=== PATIENT | female | born 1985 | race Caucasian/White ===

== ENCOUNTER 2016-09-30 11:52 | Emergency (ER) | payer OTHER ==
[~2016-09-30] VITALS: Ht 160 cm; Wt 81.6 kg
[~2016-09-30 11:52] MED LIST: MTR600X PO; PRENTAB26 PO
[2016-09-30 11:57] VITALS: TEMP 37; Ht 160 cm; Wt 81.6 kg
[2016-09-30] MEDS ORDERED: ALUMINUM/MAGNESIUM SUSP 30 ML UDC PO STA (12:28)
[2016-09-30] MEDS ORDERED: FAMOTIDINE 20MG/102 ML D5W IV STA (12:28)
[2016-09-30] MEDS ORDERED: ONDANSETRON INJ 2 MG/ML 2 ML VIAL IV STA (12:28)
[2016-09-30] MEDS ORDERED: SODIUM CHLORIDE 0.9% 1000ML 1,000 ML IV STA ×2 (12:28)
[2016-09-30] MEDS ORDERED: LIDOCAINE HCL 2% VISC SOLN 20 ML UDC PO STA (12:28)
[2016-09-30 12:52] VITALS: O2SAT 94
[2016-09-30 12:56] LABS: BASO % 0.6 %; BASO ABS # 0.05 K/uL (0-0.2); COMPLETE YES; EOS % 1.1 %; IG% 0.1 %; LYMPH % 29.5 %; LYMPH ABS # 2.51 K/uL (1.2-3.4); MEAN CELL VOLUME 85.3 fL (80-100); MEAN CORPUSCULAR HEMOGLOBIN 30.6 pg (25-34); MEAN CORPUSCULAR HGB CONC 35.9 g/dl (32-36); MEAN PLATELET VOLUME 12.2 fL (7.4-10.4); MONO % 6.3 %; NEUT % 62.4 %; PLATELET COUNT 274 K/uL (130-400); RED BLOOD COUNT 4.57 M/uL (4.2-5.4); WHITE BLOOD COUNT 8.51 K/uL (4.8-10.8)
[2016-09-30 13:05] LABS: AST/SGOT 14 U/L (15-37); BLOOD UREA NITROGEN 10 mg/dl (7-18); BUN/CREATININE RATIO 14.4 (10-20); CARBON DIOXIDE 29 mmol/L (21-32); CHLORIDE 108 mmol/L (98-107); GLUCOSE 108 mg/dl (70-99); MAGNESIUM 2.2 mg/dl (1.8-2.4); POTASSIUM 3.6 mmol/L (3.5-5.1); SODIUM 142 mmol/L (136-145)
[2016-09-30 13:10] LABS: ALKALINE PHOSPHATASE 70 U/L (45-117); ALT/SGPT 23 U/L (12-78)
--- NOTE | 2016-09-30 13:17 | DIAGNOSTIC IMAGING REPORT ---
CHEST ONE VIEW PORTABLE CLINICAL HISTORY: CHEST PAIN dyspnea COMPARISON STUDY: No previous studies for comparison. FINDINGS: The bones soft tissues and hemidiaphragms are normal. The cardiomediastinal silhouette is normal. The lungs are clear. The pulmonary vasculature is normal. IMPRESSION: Negative chest. Electronically signed by: Alberto Dunlap M.D. 09/30/2016 1:15 PM Dictated Date/Time: 09/30/2016 1:15 PM
[2016-09-30 13:20] LABS: PREG INTERNAL NEGATIVE QC NEG CLEAR BACKGROUND; PREG INTERNAL POSITIVE QC POS CONTROL LINE
[2016-09-30] MEDS ORDERED: PRLSR20 PO (13:44)
--- NOTE | 2016-09-30 14:14 | DIAGNOSTIC IMAGING REPORT ---
ABDOMINAL ULTRASOUND, RIGHT UPPER QUADRANT HISTORY: Epigastric pain. Recent cholecystectomy.. COMPARISON: None. FINDINGS: Pancreas: The pancreatic tail is obscured by overlying bowel gas. The remaining portions of the pancreas are within normal limits. Liver: Unremarkable. Gallbladder: The gallbladder is surgically absent. CBD: 4 mm Right kidney: No hydronephrosis. IMPRESSION: No significant abnormality identified within the right upper quadrant. Prior cholecystectomy. Electronically signed by: Shay Woodward M.D. 09/30/2016 2:12 PM Dictated Date/Time: 09/30/2016 2:02 PM
[2016-09-30] MEDS ORDERED: DICYCLOMINE HCL 10 MG/ML 2 ML AMP IM ONE (14:45)
[2016-09-30] MEDS ORDERED: OPTIRAY 320 IV PRN (14:45)
--- NOTE | 2016-09-30 15:20 | DIAGNOSTIC IMAGING REPORT ---
CT SCAN OF THE ABDOMEN AND PELVIS WITH IV CONTRAST CLINICAL HISTORY: Right-sided abdominal pain. COMPARISON STUDY: Abdominal ultrasound dated 09/30/2016. Pelvic ultrasound dated 09/30/2015. TECHNIQUE: Following the IV administration of 93 cc of Optiray 320, CT scan of the abdomen and pelvis is performed from the lung bases to the proximal femora. Images are reviewed in the axial, sagittal, and coronal planes. IV contrast was administered without complication. Automated dose control exposure was utilized. CT DOSE: 452.81 mGy.cm FINDINGS: Lung bases: The heart is normal in size and without pericardial effusion. The lung bases are clear. Liver: The contrast-enhanced liver is normal in size, contour, and attenuation. There is no intrahepatic biliary ductal dilatation. The hepatic veins and portal veins are patent. Gallbladder: Surgically absent noting clips in the gallbladder fossa. Spleen: Normal in size and attenuation. Pancreas: Unremarkable. Adrenal glands: Unremarkable. Kidneys: The contrast enhanced kidneys are normal in size and without hydronephrosis. Excreted contrast is present within the renal collecting system. A nonobstructing calculus is suspected in the lower pole the right kidney on image #215. The kidneys enhance symmetrically. Abdominal vasculature: The abdominal aorta is normal in course and caliber. Bowel: The small bowel and colon are normal in course and caliber. The appendix is well-visualized and normal. Peritoneum: There is no intraperitoneal free air or abdominal ascites. There is a fat-containing umbilical hernia. Lymphadenopathy: None. Pelvic viscera: Excreted contrast is present within the bladder. The bladder is otherwise normal as imaged. The uterus and adnexa are normal as visualized. Bilateral ovarian follicles are present. Skeletal structures: No lytic or blastic lesions are seen. Mild sclerotic change is noted at the sacroiliac joints and pubic symphysis. IMPRESSION: 1. There are no acute infectious or inflammatory findings in the abdomen or pelvis. 2. Question a small nonobstructing calculus in the lower pole of the right kidney. This is suboptimally assessed due to the presence of excreted IV contrast within the renal collecting system. Electronically signed by: Titi Marquez M.D. 09/30/2016 3:18 PM Dictated Date/Time: 09/30/2016 3:14 PM
[2016-09-30] MEDS ORDERED: PANT40TA PO (16:12)
--- NOTE | 2016-09-30 16:14 | EMERGENCY ROOM VISIT NOTE ---
History First contact with patient: 12:11 Chief Complaint: ABDOMINAL PAIN Stated Complaint: PAIN IN GALLBLADDER AREA Nursing Triage Summary: Pt states, "I had my gall bladder out in Jul. I feel like I am having a gall bladder attack. I have been getting light pain all week and today it got worse. I have diarrhea and I have threw up once at work." History of Present Illness The patient is a 31 year old female who presents to the Emergency Room with complaints of nausea, vomiting, diarrhea and epigastric discomfort for the past day. Patient denies chest pain, dyspnea, fever, chills, cough, chest, back pain , urinary symptoms. She describes the pain as aching, ranging in severity 5 out of 10 system are to her gallbladder pain. No blood or black in the stool or vomit. She has had recent antibiotics. She is on well water but does not drink. Review of Systems See HPI for pertinent positives & negatives. A total of 10 systems reviewed and were otherwise negative. Past Medical/Surgical History Social History Problems: (1) IUD (intrauterine device) in place GERD, kidney stones, cholecystectomy Family History Patient reports no known family medical history. Social History Smoking Status: Never Smoker Drug Use: none Marital Status: in relationship Occupation Status: employed Current/Historical Medications Scheduled Ibuprofen (Ibuprofen), 1 TAB PO Q6H Multivit/Min/Iron/Fol Ac/Pren ( Vitamin), 1 TAB PO DAILY Omeprazole (Prilosec), 20 MG PO DAILY Pantoprazole (Protonix), 40 MG PO DAILY Allergies Coded Allergies: Cefazolin (Unverified Allergy, Mild, 09/30/16) Sulfa Antibiotics (Verified Allergy, Mild, THINKS SHE GOT A RASH, DIARRHEA , 09/30/16) Cefixime (Unverified Adverse Reaction, Intermediate, DIZZY, WEAK, 09/30/16) FROM [facility] Physical Exam Vital Signs Date Time Temp Pulse Resp B/P Pulse Ox O2 Delivery O2 Flow Rate FiO2 09/30/16 14:30 64 17 122/80 100 Room Air 09/30/16 13:09 92 09/30/16 12:52 94 Room Air 09/30/16 12:52 94 Room Air 09/30/16 11:57 37.0 91 18 140/84 95 Room Air Physical Exam VITALS: Vitals are noted on the nurse's note and reviewed by myself. Vital signs stable. GENERAL: Pleasant female, in no acute distress, nondiaphoretic, well-developed well-nourished. SKIN: The skin was without rashes, erythema, edema, or bruising. There is no tenting of the skin. Capillary reflex less than 2 seconds. HEAD: Normocephalic atraumatic. EARS: External auditory canals clear, tympanic membranes pearly mckenzie without erythema or effusion bilaterally. EYES: Pupils equal round and reactive to light and accommodation. Conjunctivae without injection, sclerae without icterus. Extraocular movements intact. NOSE: Patent, turbinates without inflammation or discharge. No sinus tenderness. MOUTH: Mucous membranes mildly dry. Pharynx without erythema or exudate. Uvula midline. Airway patent. Tongue does not deviate. NECK: Supple without nuchal rigidity. No lymphadenopathy. No thyromegaly. Cervical spine is nontender. No JVD. HEART: Regular rate and rhythm without murmurs gallops or rubs. LUNGS: Clear to auscultation bilaterally without wheezes, rales or rhonchi. No dullness to percussion. No retractions or accessory muscle use. ABDOMEN: Positive bowel sounds x 4. Normal tympanic percussion. Soft, minimal tender to palpation epigastric region, no CVA tenderness, without masses or organomegaly. Simon sign negative. No guarding or rebound tenderness. MUSCULOSKELETAL: No muscle atrophy, erythema, or edema noted. NEURO: Patient was alert and oriented to person place and time. Normal sensation to light and sharp touch. No focal neurological deficits. Medical Decision & Procedures Laboratory Results 09/30/16 12:14 Red Blood Count 4.57, Mean Corpuscular Volume 85.3, Mean Corpuscular Hemoglobin 30.6, Mean Corpuscular Hemoglobin Concent 35.9, Mean Platelet Volume 12.2, Neutrophils (%) (Auto) 62.4, Lymphocytes (%) (Auto) 29.5, Monocytes (%) (Auto) 6.3, Eosinophils (%) (Auto) 1.1, Basophils (%) (Auto) 0.6, Neutrophils # (Auto) 5.31, Lymphocytes # (Auto) 2.51, Monocytes # (Auto) 0.54, Eosinophils # (Auto) 0.09, Basophils # (Auto) 0.05 09/30/16 12:14 Test 09/30/16 12:09 09/30/16 12:14 White Blood Count 8.51 K/uL (4.8-10.8) Red Blood Count 4.57 M/uL (4.2-5.4) Hemoglobin 14.0 g/dL (12.0-16.0) Hematocrit 39.0 % (37-47) Mean Corpuscular Volume 85.3 fL (80-100) Mean Corpuscular Hemoglobin 30.6 pg (25-34) Mean Corpuscular Hemoglobin Concent 35.9 g/dl (32-36) Platelet Count 274 K/uL (130-400) Mean Platelet Volume 12.2 fL (7.4-10.4) Neutrophils (%) (Auto) 62.4 % Lymphocytes (%) (Auto) 29.5 % Monocytes (%) (Auto) 6.3 % Eosinophils (%) (Auto) 1.1 % Basophils (%) (Auto) 0.6 % Neutrophils # (Auto) 5.31 K/uL (1.4-6.5) Lymphocytes # (Auto) 2.51 K/uL (1.2-3.4) Monocytes # (Auto) 0.54 K/uL (0.11-0.59) Eosinophils # (Auto) 0.09 K/uL (0-0.5) Basophils # (Auto) 0.05 K/uL (0-0.2) RDW Standard Deviation 40.7 fL (36.4-46.3) RDW Coefficient of Variation 13.1 % (11.5-14.5) Immature Granulocyte % (Auto) 0.1 % Immature Granulocyte # (Auto) 0.01 K/uL (0.00-0.02) Anion Gap 5.0 mmol/L (3-11) Est Creatinine Clear Calc Drug Dose 115.6 ml/min Estimated GFR () 131.9 Estimated GFR (Non- 113.8 BUN/Creatinine Ratio 14.4 (10-20) Calcium Level 9.0 mg/dl (8.5-10.1) Magnesium Level 2.2 mg/dl (1.8-2.4) Total Bilirubin 0.3 mg/dl (0.2-1) Direct Bilirubin < 0.1 mg/dl (0-0.2) Aspartate Amino Transf (AST/SGOT) 14 U/L (15-37) Alanine Aminotransferase (ALT/SGPT) 23 U/L (12-78) Alkaline Phosphatase 70 U/L (45-117) Troponin I < 0.015 ng/ml (0-0.045) Total Protein 8.4 gm/dl (6.4-8.2) Albumin 4.2 gm/dl (3.4-5.0) Lipase 135 U/L (73-393) Human Chorionic Gonadotropin, Qual NEG (NEG) Date/Time Source Procedure Growth Status 09/30/16 12:09 Stool C.difficile Toxin B Gene (PCR) - Final No C. difficile toxin B gene detected Complete Medications Administered Medications (Trade) Dose Ordered Sig/Maite Route Start Time Stop Time Status Last Admin Dose Admin Ondansetron HCl 4 mg 4 mg NOW STAT IV 09/30/16 12:28 09/30/16 12:31 DC 09/30/16 12:47 4 MG Sodium Chloride 1,000 ml @ 999 mls/hr Q1H1M STAT IV 09/30/16 12:28 09/30/16 13:28 DC 09/30/16 12:46 999 MLS/HR Sodium Chloride (Nss 1000ml) 1,000 ml @ 125 mls/hr Q8H STAT IV 09/30/16 12:28 09/30/16 20:27 09/30/16 12:28 125 MLS/HR Famotidine (Pepcid 20mg/100 ml) 20 mg ONE STAT IV 09/30/16 12:28 09/30/16 12:32 DC 09/30/16 12:46 20 MG Lidocaine HCl (Viscous Lidocaine 2% Soln) 10 ml NOW STAT PO 09/30/16 12:28 09/30/16 12:32 DC 09/30/16 12:47 10 ML Al Hydroxide/Mg Hydroxide (Maalox Susp) 30 ml NOW STAT PO 09/30/16 12:28 09/30/16 12:32 DC 09/30/16 12:47 30 ML Dicyclomine HCl (Bentyl Inj) 20 mg NOW ONCE IM 09/30/16 14:45 09/30/16 14:46 DC 09/30/16 15:16 20 MG ED Course Prior records/ancillary studies reviewed. Triage Nursing notes reviewed. Additional history obtained from the family. The patient's history was concerning for nausea, vomiting, diarrhea, and abdominal pain. Differential diagnosis: Etiologies such as gastroenteritis, food borne illness, infections, appendicitis , diverticulitis, inflammatory bowel disease, obstruction, GI bleed, biliary pathology, as well as others were entertained. Physical examination findings: As above. Abdominal examination revealed minimal epigastric tenderness. Vital signs reviewed and revealed stable. ER treatment provided: IV hydration 1 L NSS. GI cocktail On reassessment the patient felt better. Patient was tolerating p.o. intake. Diagnostics interpretation by me: EKG: Normal sinus, normal intervals, no acute ST-T wave changes. Impression normal sinus rhythm interpreted by myself The labs revealed negative C. difficile No worrisome leukocytosis or anemia Imaging studies: ABDOMINAL ULTRASOUND, RIGHT UPPER QUADRANT HISTORY: Epigastric pain. Recent cholecystectomy.. COMPARISON: None. FINDINGS: Pancreas: The pancreatic tail is obscured by overlying bowel gas. The remaining portions of the pancreas are within normal limits. Liver: Unremarkable. Gallbladder: The gallbladder is surgically absent. CBD: 4 mm Right kidney: No hydronephrosis. IMPRESSION: No significant abnormality identified within the right upper quadrant. Prior cholecystectomy. Electronically signed by: Shay Woodward M.D. CT of the abdomen and pelvis was reviewed and read by radiology This appears to be consistent with right upper quadrant epigastric discomfort most likely from gastritis and vomiting and diarrhea most likely viral in etiology. Patient did not have an acute abdomen on exam. She is well- appearing. She is tolerating fluids. She is advised to do clear liquid diet today and the progress as tolerated to bland diet tomorrow. She is advised follow-up family care in a few days or here in the ER sooner for abdominal pain , fevers, vomiting, worsening signs or symptoms or as needed. By the evaluation outlined above emergent etiologies such as appendicitis, diverticulitis, obstruction, cardiac sources, mesenteric ischemia, aortic pathology, inflammatory bowel disease, renal colic, PUD, biliary pathology, UTI, as well as others were deemed relatively unlikely. The pt informed about the findings as listed above. All questions were answered and pleased with the treatment. Return instructions were outlined and the patient was discharged in stable condition. Outpatient prescription management: Zofran Referral: The patient was referred to their primary care physician for follow-up in 2 to 3 days for a recheck of the current condition. Case reviewed with my attending Medical Decision As above Impression Primary Impression: Nausea vomiting and diarrhea Additional Impression: Abdominal pain Departure Information Dispostion Home / Self-Care Condition GOOD Prescriptions Pantoprazole (Protonix) 40 Mg Tab 40 MG PO DAILY for 14 Days, #14 TAB Prov: Suzie Edwards .ILENE 09/30/16 Referrals No Doctor, Assigned (PCP) Patient Instructions My [facility] Additional Instructions Protonix 40 m tablet daily for next 2 weeks. Take this on an empty stomach. Try Maalox or Zantac for breakthrough symptoms for reflux. Avoid large meals. Avoid acidic foods. Rest and drink plenty of fluids as tolerated. Continue current medications. Avoid strenuous activities and anything that worsens your pain. Resume normal activities once your symptoms resolve. Return to the ER immediately for worsening or persistent chest pain, abdominal pain, black or blood in your stools, vomiting, fevers, chest pains, difficulty breathing, worsening of your condition, or as needed. Follow up with your primary physician in 2-3 days for a recheck of your current condition. Problem Qualifiers
[2016-09-30 16:27] VITALS: BP 130/71; PULSE 72; O2SAT 97
[2016-09-30] MEDS ORDERED: PERCOCET HOME PACK PO ONE (16:30)
[2016-10-04 17:35] LABS: O&P GIARDIA AG NOT DETECTED (NOT DETECTED)
== END 2016-09-30 17:00 | disposition home or self-care (01) ==
LOC: C.EDB 11:53 → C.EDC 17:00
DX: R11.2 Nausea with vomiting, unspecified (principal); R19.7 Diarrhea, unspecified; R10.13 Epigastric pain; K21.9 Gastro-esophageal reflux disease without esophagitis; Z90.49 Acquired absence of other specified parts of digestive tract; Z87.442 Personal history of urinary calculi; Z79.899 Other long term (current) drug therapy

== ENCOUNTER 2017-02-15 11:43 | Emergency (ER) | payer OTHER ==
[~2017-02-15] VITALS: Ht 160 cm; Wt 82.1 kg
[~2017-02-15 11:43] MED LIST changes: +PRLSR20 PO
[2017-02-15 11:55] VITALS: Ht 160 cm; Wt 82.1 kg
--- NOTE | 2017-02-15 12:58 | EMERGENCY ROOM VISIT NOTE ---
History Report prepared by Herman: Aye Franklin Under the Supervision of: Ivan EscobarO. First contact with patient: 12:21 Chief Complaint: ABDOMINAL PAIN Stated Complaint: UPPER PAIN IN STOMACH History of Present Illness The patient is a 31 year old female who presents to the Emergency Room with complaints of intermittent, worsening right upper quadrant abdominal pain that began approximately five weeks ago, but became constant more recently. She currently rates her discomfort as a 6/10 in severity. The patient states that in July she had a cholecystectomy due to sludge build up in her gallbladder. She denies ever having any gallstones. The patient additionally reports that prior to her cholecystectomy she had miscarriage. She states that she is currently 8 weeks . The patient states that three weeks into her she began experiencing right upper quadrant pain that feels similar to the pain she felt with her gallbladder. She states that since her cholecystectomy she has been experiencing intermittent diarrhea, but additionally reports being in contact with a patient with c-diff. The patient states that she has been feeling increasingly bloated and has experienced nausea and vomiting. She reports right flank pain. The patient states that she has tried a low fat diet, but states that her symptoms have persisted. She states that her pain is slightly alleviated with a large bowel movement and lying down. The patient reports a history of acid reflux, but denies any history of ulcers, IBS, Crohn's disease, or ulcerative colitis. She denies any fevers, chills, urinary symptoms, vaginal bleeding, vaginal discharge, melena, or hematochezia. The patient's records were reviewed from [facility]. Source of History: patient Onset: five weeks ago Position: abdomen (RUQ) Symptom Intensity: 6/10 Timing: constant, worsening Modifying Factors (Relieving): other (large bowel movements, lying down) Associated Symptoms: + nausea, + vomiting, + diarrhea, No fevers, No chills , No melena, No hematochezia, No urinary symptoms Note: Associated Symptoms: abdominal bloating Review of Systems See HPI for pertinent positives & negatives. A total of 10 systems reviewed and were otherwise negative. Past Medical & Surgical Social History Problems: (1) IUD (intrauterine device) in place Family History Patient reports no known family medical history. Social History Smoking Status: Never Smoker Drug Use: none Marital Status: in relationship Occupation Status: employed Current/Historical Medications Scheduled Multivit/Min/Iron/Fol Ac/Pren ( Vitamin), 1 TAB PO DAILY Ranitidine Hcl (Zantac), 150 MG PO DAILY Allergies Coded Allergies: Cefazolin (Unverified Allergy, Mild, 02/15/17) Sulfa Antibiotics (Verified Allergy, Mild, THINKS SHE GOT A RASH, DIARRHEA , 02/15/17) Cefixime (Unverified Adverse Reaction, Intermediate, DIZZY, WEAK, 02/15/17) FROM [facility] Physical Exam Vital Signs Date Time Temp Pulse Resp B/P (MAP) Pulse Ox O2 Delivery O2 Flow Rate FiO2 02/15/17 18:26 37.3 87 18 112/86 100 02/15/17 17:56 87 18 112/86 100 Room Air 02/15/17 15:55 87 18 112/86 99 Room Air 02/15/17 13:39 94 18 145/77 100 Room Air 02/15/17 11:55 37.3 120 20 126/79 99 Room Air Physical Exam GENERAL: alert, well appearing, well nourished, no distress, non-toxic EYE EXAM: normal conjunctiva, PERRL and EOM's grossly intact OROPHARYNX: no exudate, no erythema, lips, buccal mucosa, and tongue normal and mucous membranes are moist NECK: supple, no nuchal rigidity, no adenopathy, non-tender LUNGS: Clear to auscultation. Normal chest wall mechanics HEART: no murmurs, S1 normal and S2 normal ABDOMEN: abdomen soft, mild right upper quadrant tenderness to palpation, normo- active bowel sounds, no masses, no rebound or guarding. BACK: Back is symmetrical on inspection and there is no deformity, no midline tenderness, no CVA tenderness. SKIN: no rashes and no bruising UPPER EXTREMITIES: upper extremities are grossly normal. LOWER EXTREMITIES: No pitting edema. NEURO EXAM: Normal sensorium, cranial nerves II-XII grossly intact, normal speech, no gross weakness of arms, no gross weakness of legs. Medical Decision & Procedures Laboratory Results 02/15/17 12:20 Red Blood Count 4.40, Mean Corpuscular Volume 86.4, Mean Corpuscular Hemoglobin 29.5, Mean Corpuscular Hemoglobin Concent 34.2, Mean Platelet Volume 11.6, Neutrophils (%) (Auto) 80.0, Lymphocytes (%) (Auto) 13.9, Monocytes (%) (Auto) 5.3, Eosinophils (%) (Auto) 0.4, Basophils (%) (Auto) 0.2, Neutrophils # (Auto) 9.41, Lymphocytes # (Auto) 1.64, Monocytes # (Auto) 0.62, Eosinophils # (Auto) 0.05, Basophils # (Auto) 0.02 02/15/17 12:20 Test 02/15/17 12:20 02/15/17 13:42 White Blood Count 11.76 K/uL (4.8-10.8) Red Blood Count 4.40 M/uL (4.2-5.4) Hemoglobin 13.0 g/dL (12.0-16.0) Hematocrit 38.0 % (37-47) Mean Corpuscular Volume 86.4 fL (80-100) Mean Corpuscular Hemoglobin 29.5 pg (25-34) Mean Corpuscular Hemoglobin Concent 34.2 g/dl (32-36) Platelet Count 287 K/uL (130-400) Mean Platelet Volume 11.6 fL (7.4-10.4) Neutrophils (%) (Auto) 80.0 % Lymphocytes (%) (Auto) 13.9 % Monocytes (%) (Auto) 5.3 % Eosinophils (%) (Auto) 0.4 % Basophils (%) (Auto) 0.2 % Neutrophils # (Auto) 9.41 K/uL (1.4-6.5) Lymphocytes # (Auto) 1.64 K/uL (1.2-3.4) Monocytes # (Auto) 0.62 K/uL (0.11-0.59) Eosinophils # (Auto) 0.05 K/uL (0-0.5) Basophils # (Auto) 0.02 K/uL (0-0.2) RDW Standard Deviation 40.7 fL (36.4-46.3) RDW Coefficient of Variation 12.8 % (11.5-14.5) Immature Granulocyte % (Auto) 0.2 % Immature Granulocyte # (Auto) 0.02 K/uL (0.00-0.02) Anion Gap 9.0 mmol/L (3-11) Est Creatinine Clear Calc Drug Dose 124.9 ml/min Estimated GFR () 135.2 Estimated GFR (Non- 116.7 BUN/Creatinine Ratio 12.2 (10-20) Calcium Level 9.4 mg/dl (8.5-10.1) Total Bilirubin 0.3 mg/dl (0.2-1) Aspartate Amino Transf (AST/SGOT) 10 U/L (15-37) Alanine Aminotransferase (ALT/SGPT) 15 U/L (12-78) Alkaline Phosphatase 53 U/L (45-117) Total Protein 8.1 gm/dl (6.4-8.2) Albumin 3.8 gm/dl (3.4-5.0) Globulin 4.3 gm/dl (2.5-4.0) Albumin/Globulin Ratio 0.9 (0.9-2) Lipase 144 U/L (73-393) Human Chorionic Gonadotropin, Quant 03360 mIU/mL Urine Color YELLOW Urine Appearance CLEAR (CLEAR) Urine pH 5.5 (4.5-7.5) Urine Specific [place] 1.013 (1.000-1.030) Urine Protein NEG (NEG) Urine Glucose (UA) NEG (NEG) Urine Ketones TRACE (NEG) Urine Occult Blood NEG (NEG) Urine Nitrite NEG (NEG) Urine Bilirubin NEG (NEG) Urine Urobilinogen NEG (NEG) Urine Leukocyte Esterase NEG (NEG) Lactic Acid Level 1.1 mmol/L (0.4-2.0) Date/Time Source Procedure Growth Status 02/15/17 11:55 Stool C.difficile Toxin B Gene (PCR) - Final No C. difficile toxin B gene detected Complete Laboratory results per my review. Medications Administered Medications (Trade) Dose Ordered Sig/Maite Route Start Time Stop Time Status Last Admin Dose Admin Ranitidine HCl (zANTac TAB) 150 mg NOW STAT PO 02/15/17 16:01 02/15/17 16:02 DC 02/15/17 16:01 150 MG Al Hydroxide/Mg Hydroxide (Maalox Susp) 30 ml NOW STAT PO 02/15/17 16:01 02/15/17 16:03 DC 02/15/17 17:52 30 ML ED Course 1244: The patient was evaluated in room C5. A complete history and physical exam was performed. 1453: I reevaluated the patient and she is still experiencing right upper quadrant abdominal pain. I updated her on her test results. She is awaiting an ultrasound. Medical Decision Differential diagnoses includes but is not limited to gastritis, peptic ulcer disease, GERD, gallbladder disease, pancreatitis, small bowel obstruction, acute coronary syndrome, pericarditis, ischemic bowel, irritable bowel disease, irritable bowel syndrome, appendicitis, diverticulitis, malignancy, hernia, urinary tract infection, torsion, /ectopic (if female), perforation, trauma, infectious. Medication Reconciliation: I attest that I have personally reviewed the patient' s current medication list. Blood pressure screening: Patient was found to have a slightly elevated blood pressure due to circumstances. I do not believe that the patient requires hypertension monitoring. Unclear etiology of recurrent and persistent RUQ pain s/p cholecystectomy. Possibly related to gastritis/duodenitis, discussed meds with pt and need for f/ u. US performed due to early . Pt also concerned about her and requested US also. Pt had outpt confirmatory US of IUP 2 weeks ago and showed me US pics at bedside. Pt with miscarriage earlier this year and anxious regarding the . No bleeding or lower abd/pelvic pain. Doubt spontaneous ab. Doubt post op complication for elena many months ago, no lab evidence of pancreatitis, doubt colitis, sbo, ectopic, uti, renal stone Pt signed out to Dr Hunt to f/u US results. Pt aware that if negative, plan for discharge and f/u with abrasive wheel molder and PCP. Impression Primary Impression: Abdominal pain Additional Impression: Scribe Attestation The scribe's documentation has been prepared under my direction and personally reviewed by me in its entirety. I confirm that the note above accurately reflects all work, treatment, procedures, and medical decision making performed by me. Departure Information Dispostion Home / Self-Care Prescriptions Ranitidine Hcl (ZANTAC) 150 Mg Tab 150 MG PO DAILY for 7 Days, #7 TAB Prov: Skyler Hunt MD 02/15/17 Referrals No Doctor, Assigned (PCP) Patient Instructions My [facility] Additional Instructions Please keep your appointment with abrasive wheel molder. Please continue taking your vitamins and drinking plenty of water. Please continue to avoid any foods which could be irritating to your stomach. If you develop any worsening pain, fevers, vomiting, vaginal bleeding, or you have any other new or concerning symptoms, please return to the emergency room. Please consider taking ranitidine daily. This is safe during . Please discuss your abdominal pain with abrasive wheel molder and with your PCP. Problem Qualifiers Primary Impression: Abdominal pain Abdominal location: right upper quadrant Qualified Codes: R10.11 - Right upper quadrant pain Additional Impression: Weeks of gestation: 8 weeks Qualified Codes: Z3A.08 - 8 weeks gestation of
[2017-02-15 13:41] LABS: BASO % 0.2 %; BASO ABS # 0.02 K/uL (0-0.2); COMPLETE YES; EOS % 0.4 %; IG% 0.2 %; LYMPH % 13.9 %; LYMPH ABS # 1.64 K/uL (1.2-3.4); MEAN CELL VOLUME 86.4 fL (80-100); MEAN CORPUSCULAR HEMOGLOBIN 29.5 pg (25-34); MEAN CORPUSCULAR HGB CONC 34.2 g/dl (32-36); MEAN PLATELET VOLUME 11.6 fL (7.4-10.4); MONO % 5.3 %; PLATELET COUNT 287 K/uL (130-400); WHITE BLOOD COUNT 11.76 K/uL (4.8-10.8)
[2017-02-15 13:50] LABS: BUN/CREATININE RATIO 12.2 (10-20); CALCIUM 9.4 mg/dl (8.5-10.1); CREATININE 0.65 mg/dl (0.60-1.20); POTASSIUM 3.4 mmol/L (3.5-5.1)
[2017-02-15 13:53] LABS: ALB/GLOB RATIO 0.9 (0.9-2)
[2017-02-15 14:15] LABS: URINE APPEARANCE CLEAR (CLEAR); URINE BILIRUBIN NEG (NEG); URINE COLOR YELLOW; URINE NITRITE NEG (NEG); URINE PH 5.5 (4.5-7.5); URINE SPECIFIC GRAVITY 1.013 (1.000-1.030); UROBILINOGEN NEG (NEG); ZZUR CULT IF INDIC CLEAN CATCH NO
[2017-02-15 14:20] LABS: MANUAL MICROSCOPIC REQUIRED? NO; REVIEW REQ? NO
[2017-02-15] MEDS ORDERED: RANITIDINE HCL 150 MG TAB PO STA (16:01)
[2017-02-15] MEDS ORDERED: ALUMINUM/MAGNESIUM SUSP 30 ML UDC PO STA (16:01)
--- NOTE | 2017-02-15 17:05 | DIAGNOSTIC IMAGING REPORT ---
ABDOMINAL ULTRASOUND, RIGHT UPPER QUADRANT HISTORY: Right upper quadrant pain status post cholecystectomy. COMPARISON: CT of the abdomen and pelvis and right upper quadrant ultrasound September 30, 2016. FINDINGS: The liver is sonographically normal. There is no biliary ductal dilatation status post cholecystectomy. Common bile duct measures 4 mm in caliber. The pancreatic body is normal. The head and tail are partially obscured. There is no right hydronephrosis. IMPRESSION: 1. No abnormality within the right upper quadrant status post cholecystectomy. 2. Partially obscured pancreas. Electronically signed by: Chong Cadena M.D. 02/15/2017 5:04 PM Dictated Date/Time: 02/15/2017 5:03 PM
--- NOTE | 2017-02-15 17:24 | DIAGNOSTIC IMAGING REPORT ---
<14 WKS SINGLE CLINICAL HISTORY: Positive test. Abdominal pain. COMPARISON STUDY: Pelvic ultrasound September 30, 2015. TECHNIQUE: Transabdominal and transvaginal sonography of the pelvis was performed. FINDINGS: Intrauterine gestational sac is noted with a mean sac diameter of 2.46 cm. This contains a yolk sac that measures 7.7 mm in size is enlarged. A pole is present with crown-rump length of 1.43 cm which corresponds to an estimated gestational age of 7 weeks and 3 days. cardiac activity is noted with heart rate of 164 bpm. A possible subchorionic hematoma measuring approximately 2 cm is noted. The right ovary measures 2.6 x 3.3 x 1.9 cm and the left measures 2.2 x 1.3 x 1.9 cm. There may be a corpus luteal cyst within the right ovary. IMPRESSION: Intrauterine gestational sac which contains a yolk sac and pole with normal heart rate of 164 bpm and estimated gestational age on this exam of 7 weeks and 5 days. However, the sac is enlarged, measuring 8 mm. This is worrisome for a failed but not diagnostic of a failed and the findings still may reflect a normal early intrauterine gestation. Close clinical follow-up, including serial beta hCG levels and follow-up pelvic ultrasound is recommended. Possible subchorionic hematoma measuring 2 cm. Electronically signed by: Chong Cadena M.D. 02/15/2017 5:23 PM Dictated Date/Time: 02/15/2017 5:04 PM
[2017-02-15] MEDS ORDERED: RANI150T3 PO (17:54)
[2017-02-15 18:26] VITALS: BP 112/86; PULSE 87; TEMP 37.3; O2SAT 100
== END 2017-02-15 18:20 | disposition home or self-care (01) ==
LOC: C.EDB 11:45 → C.EDC 18:20
DX: R10.11 Right upper quadrant pain (principal); Z33.1 Pregnant state, incidental; K21.9 Gastro-esophageal reflux disease without esophagitis

== ENCOUNTER 2017-09-24 20:20 | Outpatient (CLI) | payer OTHER ==
[~2017-09-24] VITALS: Ht 160 cm; Wt 93.6 kg
[~2017-09-24 20:20] MED LIST changes: -MTR600X PO; -PRLSR20 PO
[2017-09-24 21:23] LABS: BASO % 0.2 %; BASO ABS # 0.02 K/uL (0-0.2); EOS % 0.5 %; EOS ABS # 0.06 K/uL (0-0.5); HEMATOCRIT 35.1 % (37-47); HEMOGLOBIN 11.6 g/dL (12.0-16.0); IG# 0.04 K/uL (0.00-0.02); LYMPH % 15.3 %; LYMPH ABS # 1.79 K/uL (1.2-3.4); MEAN CORPUSCULAR HEMOGLOBIN 27.8 pg (25-34); MEAN PLATELET VOLUME 12.1 fL (7.4-10.4); MONO % 6.1 %; MONO ABS # 0.71 K/uL (0.11-0.59); NEUT % 77.6 %; NEUT ABS # 9.06 K/uL (1.4-6.5); NUCLEATED RED BLOOD CELL ABS 0.02 K/uL (0-0); PLATELET COUNT 279 K/uL (130-400); RED CELL DISTRIBUTION WIDTH CV 13.7 % (11.5-14.5); RED CELL DISTRIBUTION WIDTH SD 40.9 fL (36.4-46.3); WHITE BLOOD COUNT 11.68 K/uL (4.8-10.8)
[2017-09-24 21:31] LABS: ALBUMIN 2.4 gm/dl (3.4-5.0); ALT/SGPT 16 U/L (12-78); BLOOD UREA NITROGEN 12 mg/dl (7-18); CALCIUM 8.9 mg/dl (8.5-10.1); CARBON DIOXIDE 22 mmol/L (21-32); CREATININE 0.56 mg/dl (0.60-1.20); GLUCOSE 121 mg/dl (70-99); POTASSIUM 3.5 mmol/L (3.5-5.1); SODIUM 137 mmol/L (136-145)
[2017-09-24] MEDS ORDERED: VALA500T60 PO (21:32)
[2017-09-24 21:33] VITALS: Ht 160 cm; Wt 93.6 kg
[2017-09-24 21:34] LABS: ALKALINE PHOSPHATASE 148 U/L (45-117); AST/SGOT 16 U/L (15-37); TOTAL PROTEIN 6.7 gm/dl (6.4-8.2)
--- NOTE | 2017-09-24 21:46 | Progress Note ---
Progress Note Date of Service Sep 24, 2017. Progress Note Pt is , GDM A1 on diet. called because her FS were in the low 90's. declined light headedness,SOB, or dec FM FHR; CAT1 Ctx > Irreg Labs ordered and reviewed D/c home with instructions
--- NOTE | 2017-09-24 21:47 | Discharge Instructions ---
Discharge Instructions Date of Service Sep 24, 2017. Admission Reason for Admission: NST Discharge Discharge Diagnosis / Problem: at 39 weeks Discharge Goals Goal(s): Continuing OB care Activity Recommendations Activity Limitations: as noted below SPECIAL CARE INSTRUCTIONS: Call Doctor if: * Regular contractions every 5 minutes or greater than contractions in one hour. * Bleeding * Water breaks or is leaking * Decreased movement * Fever >100.4 degrees F * Pain not relieved by routine measures or pain medication ordered. FOLLOW UP VISIT: Return to Labor and Delivery on for /call for appointment time . Follow-up Visit with: When: . Current Hospital Diet Patient's current hospital diet: Discharge Diet Recommended Diet: Regular Diet Pending Studies Studies pending at discharge: no Medical Emergencies . Who to Call and When: Medical Emergencies: If at any time you feel your situation is an emergency, please call 911 immediately. . Non-Emergent Contact Non-Emergency issues call your: Specialist . . "Provider Documentation" section prepared by Quirino Thompson. .
== END 2017-09-24 21:59 | disposition home or self-care (01) ==
LOC: C.LD 20:20 → C.OPB 20:20
PROVIDERS: ATTEND Obstetrics & Gynecology
DX: O24.410 Gestational diabetes mellitus in pregnancy, diet controlled (principal); O62.9 Abnormality of forces of labor, unspecified; Z3A.39 39 weeks gestation of pregnancy

== ENCOUNTER 2017-09-25 04:27 | Inpatient (IN) | payer OTHER ==
[~2017-09-25] VITALS: Ht 160 cm; Wt 93.6 kg
[~2017-09-25 04:27] MED LIST changes: +VALA500T60 PO
[2017-09-25 04:45] VITALS: Ht 160 cm; Wt 93.6 kg
[2017-09-25] MEDS ORDERED: NURSING VERBAL MED ORDER ONE (05:15)
[2017-09-25 05:42] LABS: HEMATOCRIT 36.8 % (37-47); MEAN CELL VOLUME 84.6 fL (80-100); MEAN CORPUSCULAR HEMOGLOBIN 27.6 pg (25-34); MEAN CORPUSCULAR HGB CONC 32.6 g/dl (32-36); MEAN PLATELET VOLUME 11.5 fL (7.4-10.4); PLATELET COUNT 263 K/uL (130-400); RED CELL DISTRIBUTION WIDTH CV 13.7 % (11.5-14.5); RED CELL DISTRIBUTION WIDTH SD 41.9 fL (36.4-46.3); WHITE BLOOD COUNT 14.51 K/uL (4.8-10.8)
[2017-09-25] MEDS ORDERED: LACTATED RINGER'S 1000ML 1,000 ML IV SCH (05:45)
[2017-09-25] MEDS ORDERED: LACTATED RINGER'S 1000ML 1,000 ML IV PRN (05:45)
[2017-09-25] MEDS ORDERED: FENTANYL CITRATE INJ 50 MCG/1 ML 2 ML VIAL ONE (06:44)
[2017-09-25] MEDS ORDERED: EpHEDrine SULFATE INJ 50 MG/ML AMP ONE (06:44)
[2017-09-25] MEDS ORDERED: BUPIVACAINE 0.25% 30 ML VIAL ONE (06:44)
[2017-09-25] MEDS ORDERED: FENTANYL 2MCG/ML ROPIV 1.25MG/ML 100ML BAG EPI ONE (06:45)
[2017-09-25] MEDS: LACTATED RINGER'S 1000ML 1,000 ML IV SCH ×2 (07:30→07:35)
[2017-09-25] MEDS ORDERED: LACTATED RINGER'S 1000ML 500 ML IV PRN (07:59)
[2017-09-25] MEDS ORDERED: NALOXONE HCL INJ 1 MG in SODIUM CHLORIDE 0.9% 1000ML 1,000 ML IV PRN (07:59)
[2017-09-25] MEDS ORDERED: FENTANYL 2MCG/ML ROPIV 1.25MG/ML 100ML BAG EPI PRN (08:00)
[2017-09-25] MEDS ORDERED: EpHEDrine SULFATE INJ 50 MG/ML AMP IV PRN (08:00)
[2017-09-25] MEDS ORDERED: ONDANSETRON INJ 2 MG/ML 2 ML VIAL IV PRN (08:00)
[2017-09-25] MEDS ORDERED: NALOXONE HCL INJ 0.4 MG/1 ML VIAL/CARP IV PRN (08:00)
[2017-09-25] MEDS ORDERED: NALBUPHINE HCL INJ 10 MG/ML AMP IV PRN (08:00)
[2017-09-25] MEDS ORDERED: DiphenhydrAMINE HCL 50 MG/ML VIAL IV PRN (08:00)
[2017-09-25] MEDS ORDERED: OXYTOCIN 30 UNITS/500ML NSS IV ONE (09:15)
[2017-09-25] MEDS ORDERED: SUPERCREAM 0.870 % 15GM JAR EXT PRN (09:30)
[2017-09-25] MEDS ORDERED: BENZOCAINE 20% AER SPR 82.5 GM CAN EXT PRN (09:30)
[2017-09-25] MEDS ORDERED: HYDROCORTISONE ACETATE 25 MG SUPP PR PRN (09:30)
[2017-09-25] MEDS ORDERED: OXYCODONE/ACETAMINOPHEN 5-325 TAB PO PRN (09:30)
[2017-09-25] MEDS ORDERED: LANOLIN OINT EXT PRN (09:30)
[2017-09-25] MEDS ORDERED: OXYTOCIN 30 UNITS/500ML NSS IV PRN (09:30)
[2017-09-25] MEDS ORDERED: ACETAMINOPHEN/CODEINE 300/30MG TAB PO PRN ×2 (09:30)
[2017-09-25] MEDS ORDERED: MISOPROSTOL 200 MCG TAB PR SCH (09:30)
[2017-09-25] MEDS ORDERED: MISOPROSTOL 200 MCG TAB ONE (09:34)
--- NOTE | 2017-09-25 09:59 | Anesthesia Procedure Note ---
Anesthesia Epidural Removal Nt Date & Time Sep 25, 2017 at 09:59 Vital Signs Pain Intensity: 0.0 Notes Mental Status: alert / awake / arousable, participated in evaluation Nausea / Vomiting: adequately controlled Pain: adequately controlled Airway Patency, RR, SpO2: stable & adequate BP & HR: stable & adequate Hydration State: stable & adequate Neuraxial Anesthesia: was administered, sensory block is resolving Anesthetic Complications: no major complications apparent, pt satisfied with anesthetic care Epidural: removed without complications, with tip intact
[2017-09-25] MEDS: IBUPROFEN 600 MG TAB PO PRN ×3 (13:34→23:47)
[2017-09-25 13:37] VITALS: BP 134/69; PULSE 111; TEMP 37.4
[2017-09-25 16:45] VITALS: BP 121/78; PULSE 89; TEMP 36.8
[2017-09-25 19:15] VITALS: BP 137/76; PULSE 100; TEMP 36.7
[2017-09-25] MEDS: DOCUSATE SODIUM 100 MG CAP PO SCH (19:23)
[2017-09-25] MEDS: ACETAMINOPHEN 325 MG TAB PO PRN (19:24)
--- NOTE | 2017-09-25 19:32 | DELIVERY SUMMARY ---
DATE OF OPERATION: 09/25/2017 The patient delivered a live infant male in left occiput anterior presentation. There was no nuchal cord. Infant was delivered, placed on mother's abdomen. Cord was clamped and cut after 1 minute. Infant's weight and scores are in the pediatric record. Placenta spontaneously delivered. Inspection of the placenta shows grossly normal placenta with 3-vessel cord. Inspection of the perineum showed no laceration or tears. ESTIMATED BLOOD LOSS: 500 mL All instruments were removed from the vagina including retractors. Baby and mother are doing well and hemodynamically stable in recovery. I attest to the content of the Intraoperative Record and any orders documented therein. Any exception s are noted below.
[2017-09-25 23:25] VITALS: BP 119/76; PULSE 87; TEMP 36.7; O2SAT 99
[2017-09-26 04:30] VITALS: BP 101/64; PULSE 88; TEMP 36.9; O2SAT 98
[2017-09-26 06:28] LABS: HEMATOCRIT 32.6 % (37-47); HEMOGLOBIN 10.9 g/dL (12.0-16.0)
[2017-09-26] MEDS: IBUPROFEN 600 MG TAB PO PRN ×3 (07:54→22:44)
--- NOTE | 2017-09-26 07:59 | HISTORY & PHYSICAL EXAMINATION ---
DATE OF ADMISSION: 09/25/2017 HISTORY OF PRESENT ILLNESS: This is a 32-year-old G6, P3, due date is 10/01/2017, making her 39 weeks, presented to labor and delivery on 09/25/2017 with term, premature rupture of membranes. She experienced rupture of membranes at 3:30 a.m. This was confirmed on arrival. heart rate was category 1. Pelvic exam shows she was 3-4 cm, 90% effaced and -2. COURSE: Has been unremarkable except for history of gestational diabetes during this for which she was on diet. LABORATORY DATA: Blood type A positive, antibody negative, rubella immune, GBS nonreactive. PAST MEDICAL HISTORY: 1. CA[place]O 1. 2. Generalized anxiety disorder. 3. Herpes simplex type 2. 4. Idiopathic scoliosis. PAST SURGICAL HISTORY: Laparoscopy for cholecystectomy. ALLERGIES: THE PATIENT IS ALLERGIC TO CEFAZOLIN, CEFIXIME AND SULFA ANTIBIOTICS. SOCIAL HISTORY: The patient denies tobacco, drug or alcohol use. OBSTETRICS/GYNECOLOGIC HISTORY: The patient has had 3 vaginal deliveries without complications. PHYSICAL EXAMINATION: GENERAL: Well-developed, well-nourished white female in no acute distress. HEART: S1, S2, regular rhythm and rate. LUNGS: Clear to auscultation bilaterally. ABDOMEN: Gravid. PELVIC: 4, 90, -2. There are no active vulvar lesions seen. The patient is status post herpes simplex type 2. EXTREMITIES: No cyanosis, clubbing, edema. ASSESSMENT AND PLAN: A 32-year-old G6, P3, at 39 weeks, term, premature rupture of membranes, history of herpes but no active lesions at the time of admission. Plan, therefore, is anticipate vaginal delivery.
[2017-09-26] MEDS: FERROUS SULFATE 325 MG TAB PO SCH ×2 (08:00→08:39)
[2017-09-26] MEDS: PRENATAL VITAMIN TAB PO SCH (08:39)
[2017-09-26] MEDS: DOCUSATE SODIUM 100 MG CAP PO SCH ×2 (08:39→20:05)
[2017-09-26 09:00] VITALS: BP 114/74; PULSE 83; TEMP 36.9
[2017-09-26] MEDS: ACETAMINOPHEN 325 MG TAB PO PRN (10:51)
--- NOTE | 2017-09-26 12:42 | OB/GYN Progress Note ---
[employer] Progress Note Date of Service Sep 26, 2017. Subjective conversation w/ patient, physical exam Ambulation: ambulating normally Passing Gas: Yes Lochia: Small Feeding Type: Breast Feeding Objective Vital Signs Date Time Temp Pulse Resp B/P (MAP) Pulse Ox O2 Delivery O2 Flow Rate FiO2 09/26/17 09:00 36.9 83 20 114/74 (87) 09/26/17 04:30 36.9 88 18 101/64 (76) 98 Room Air 09/25/17 23:25 99 Room Air 09/25/17 23:25 36.7 87 18 119/76 (90) 99 Room Air 09/25/17 19:15 36.7 100 18 137/76 (96) Room Air 09/25/17 16:45 Room Air 09/25/17 16:45 36.8 89 18 121/78 (92) Room Air 09/25/17 13:37 37.4 111 20 134/69 (90) Physical Exam General Appearance: WELL-APPEARING, NO APPARENT DISTRESS Abdomen: non tender, soft Fundus: Firm Extremities: non-tender, normal inspection, no pedal edema Laboratory Results Last 24 Hours Test 09/26/17 06:15 Hemoglobin 10.9 g/dL Hematocrit 32.6 % Assessment and Plan Post- Day Number: 1 Continue Routine Care: TENT D/C IN am
[2017-09-26 15:35] VITALS: BP 119/74; PULSE 94; TEMP 36.8
[2017-09-26] MEDS ORDERED: BISACODYL 5 MG TABEC PO SCH (20:00)
[2017-09-27] VITALS: BP 120/78; PULSE 87; TEMP 37
[2017-09-27] MEDS ORDERED: BISACODYL 10 MG SUPP PR PRN (07:00)
--- NOTE | 2017-09-27 07:40 | Discharge Instructions ---
Discharge Instructions Date of Service Sep 27, 2017. Admission Reason for Admission: LABOR Discharge Discharge Diagnosis / Problem: Vaginal Delivery Discharge Goals Goal(s): Routine recovery after delivery Medications Continue Dispensed Medications: supercream, dermaplast, tucks, lansinoh Activity Recommendations Activity Limitations: per Instructions/Follow-up section . Instructions / Follow-Up Instructions / Follow-Up ACTIVITY RECOMMENDATIONS: * Gradual return to full activity over the next 2-3 weeks. * No lifting - nothing heavier than baby over the next 2-3 weeks. * Do not engage in vigorous exercise, sexual activity or sports until cleared by your physician. * Do not drive or operate any motorized equipment until cleared by your physician. * You may shower/bathe daily. BREAST CARE: If you are not breast feeding: * Wear a supportive bra 24 hours a day for one to two weeks. * Avoid stimulating your breasts and nipples as much as possible during the first few weeks after delivery. * When taking a shower, have the warm water hit your back, not breasts. * When your breasts feel full, apply ice packs. Usually three to four times a day helps ease the discomfort. * Take a mild pain medication (Tylenol/Motrin) when you are uncomfortable. If breast feeding: * Use breast milk to lubricate nipples. Lansinoh cream may be used for sore nipples. You do not need to remove cream prior to breast feeding. If using a different brand of cream, check the label for directions regarding removal of cream prior to nursing. * Wear a supportive bra. * If having problems with breasts or breast feeding, call a skin care consultant or your health care provider. EPISIOTOMY CARE: After delivery, if you have an episiotomy (stitches), the following steps will ease discomfort and aid healing. * For the first 24 hours after delivery, place ice packs next to your episiotomy to help reduce swelling. * After the first 24 hour-period, sitz baths, either portable or in the tub, are suggested. A shower with a shower arm sprayed over the episiotomy may be comforting. * Deirdre care should be done after each voiding and bowel movement. Squirt warm water from a plastic bottle over the perineum (region of the body between the anus and urinary opening) and pat dry. * Use Dermoplast to ease discomfort. Shake container. Hellier directly over the episiotomy. * Place a Tucks on a clean sanitary pad next to your episiotomy. OVER THE COUNTER MEDICATION: * For discomfort or pain, you may use Acetaminophen (Tylenol), Ibuprofen (Advil ), or Naproxen (Aleve) following the package directions. * For constipation you may use Colace following the package directions. SPECIAL CARE INSTRUCTIONS: When you are discharged from the hospital, it is important for you to follow the instructions listed below: * During the first week at home, you should be able to care for yourself and your baby. In addition, the usual light household activities are encouraged. * Limit your activities to the way you feel. Do not try to clean the house or move furniture. Be sensible. * If you actively engage in sports and have done so up until the time of your delivery, you may resume these activities as soon as you feel able. This may take up to one month or even longer. Use good judgment. * Continue to take your vitamins for at least six weeks after the of your baby. * Your diet need not be limited unless you were on a special diet before your delivery. Breast-feeding mothers need around 2500 calories per day and at least 64-80 ounces of fluid per day (8 to 10 glasses). * You should eat foods from the four major food groups. Crash diets or fad diets are to be avoided. Eating lean meats, fresh fruits and vegetables, low-fat dairy products, high fiber foods and a regular exercise program, will help you get back to your pre- weight without putting your health at risk. * Constipation is sometimes a problem after delivery. Take a mild laxative as needed. If breast feeding, Milk of Magnesia is acceptable to use. You may use a suppository or Fleets enema if no episiotomy. * A daily shower or tub bath is suggested. Be sure to thoroughly and gently dry the perineum. * A bloody vaginal discharge will usually continue until around four weeks post . A small amount of bleeding may continue for as long as six weeks. Vaginal discharge changes from the bright red bleeding after delivery to pink then brownish and finally yellowish-pink before becoming white and disappearing. * Bleeding may increase with activity. Your first period may come in 4-8 weeks. If you are breast feeding, your period may be delayed even longer. * Whetstone (sex) can begin whenever both you and your partner feel comfortable and do not have any form of genital infection. It is recommended that you wait until after your return appointment and discuss with your physician. If you have questions, please talk to your health care practitioner. A condom should be used to prevent infection and . * Foreplay, gentle intercourse and lubrication is very important the first several times to prevent pain. A water-based lubricant such as K-Y jelly or Astroglide may be used. * Tampons may be used six weeks after delivery. * Douching should be avoided for 6 weeks after delivery. * If you have RH negative blood and your baby is RH positive, you will receive RHOGAM by injection prior to discharge. The nurse will give you a card to keep with you that has the date and place that you received RHOGAM after delivery. * During your care, you had a Rubella screen done to check for the presence of rubella antibodies in your blood. If your test was negative, you will receive a Rubella vaccine prior to discharge. This vaccine may cause a fever, soreness at the injection site and flu-like symptoms. If these symptoms persist, notify your health care practitioner. is not advised for three months after a Rubella vaccine. There is a higher chance of having a baby with defects if conceived within three months of getting the vaccine. * If you were discharged 24 hours from delivery or before 48 hours: Visiting nurses will come to your home 48 hours after discharge to assess you and your baby. The visiting nurse will meet with you while you are in the hospital to arrange a time and get directions to your home. * Verbalizes understanding of car seat law as reviewed with patient nursing. * Car Seat hand-out given and reviewed with patient by nursing. * Shaken baby information reviewed with patient by nursing. Call you doctor if: * Heavy bleeding (saturating several pads an hour) or passing clots the size of your fist. * A fever >101 degrees F (38.3 degrees C) on two occasions four hours apart and/or chills. * Unusual pain in the pelvic or vaginal areas. * "Baby Blues" lasting longer than two weeks. If you have any questions or concerns, call your health care practitioner at . FOLLOW-UP VISIT: * Please call the office at to schedule a 6 week examination. It is important you keep this appointment. * It is important for you to make arrangements for either yearly or twice yearly check-ups thereafter. Current Hospital Diet Patient's current hospital diet: Regular OB Diet Discharge Diet Recommended Diet: Regular OB Diet Pending Studies Studies pending at discharge: no Medical Emergencies . Who to Call and When: Medical Emergencies: If at any time you feel your situation is an emergency, please call 911 immediately. . Non-Emergent Contact Non-Emergency issues call your: Primary Care Provider, High Worker . . "Provider Documentation" section prepared by Quincy Medeiros. .
--- NOTE | 2017-09-27 07:41 | OB/GYN Progress Note ---
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 Subjective conversation w/ patient, physical exam Ambulation: ambulating normally Voiding: no voiding problems Passing Gas: Yes Diet Tolerance: Regular Diet Lochia: Small Feeding Type: Breast Feeding Pain: 08/27 Notes: Doing well, no concerns. Pain well controlled. Lochia minimal. Tolerating regular diet. Would like to go home today. Objective Vital Signs Date Time Temp Pulse Resp B/P (MAP) Pulse Ox O2 Delivery O2 Flow Rate FiO2 09/27/17 00:00 Room Air 09/27/17 00:00 37.0 87 20 120/78 (92) Room Air 09/26/17 15:35 36.8 94 20 119/74 (89) 09/26/17 09:00 36.9 83 20 114/74 (87) Physical Exam General Appearance: WELL-APPEARING Respiratory/Chest: chest non-tender, lungs clear Cardiovascular: regular rate, rhythm Abdomen: normal bowel sounds, soft Fundus: Firm Extremities: normal range of motion, non-tender, no calf tenderness Laboratory Results Last 24 Hours Test 09/27/17 04:44 Assessment and Plan Post- Day Number: 2 Continue Routine Care: -D/C home today -F/U in 6 weeks
[2017-09-27 07:45] VITALS: BP 113/76; PULSE 89; TEMP 36.9
[2017-09-27] MEDS: DOCUSATE SODIUM 100 MG CAP PO SCH (07:56)
[2017-09-27] MEDS: FERROUS SULFATE 325 MG TAB PO SCH (07:57)
[2017-09-27] MEDS: PRENATAL VITAMIN TAB PO SCH (07:57)
[2017-09-27] MEDS: IBUPROFEN 600 MG TAB PO PRN (07:57)
[2017-09-27 08:22] LABS: HEMATOCRIT 34.6 % (37-47); HEMOGLOBIN 11.4 g/dL (12.0-16.0); MEAN CORPUSCULAR HGB CONC 32.9 g/dl (32-36); MEAN PLATELET VOLUME 11.5 fL (7.4-10.4); PLATELET COUNT 282 K/uL (130-400); RED CELL DISTRIBUTION WIDTH CV 13.8 % (11.5-14.5); RED CELL DISTRIBUTION WIDTH SD 42.2 fL (36.4-46.3); WHITE BLOOD COUNT 13.59 K/uL (4.8-10.8)
[2017-09-27 11:42] VITALS: BP_DIAS 76; PULSE 89; TEMP 36.9
== END 2017-09-27 11:49 | disposition home or self-care (01) | DRG 775 ==
LOC: C.OPB 04:27 → C.LD 04:27 → C.OPB 05:04 → C.OBG 13:51
PROVIDERS: ADMIT Obstetrics & Gynecology; ATTEND Obstetrics & Gynecology
PROC: 10E0XZZ Delivery of Products of Conception, External Approach (ICD-10-PCS; principal; 2017-09-25)
DX: O42.02 Full-term premature rupture of membranes, onset of labor within 24 hours of rupture (principal); O24.410 Gestational diabetes mellitus in pregnancy, diet controlled; Z86.19 Personal history of other infectious and parasitic diseases; Z3A.39 39 weeks gestation of pregnancy; Z37.0 Single live birth; Z88.1 Allergy status to other antibiotic agents; Z88.2 Allergy status to sulfonamides